=== PATIENT | female | born 1995 | race Caucasian/White ===

== ENCOUNTER 2020-03-26 17:19 | Emergency (ER) | payer MEDICAID ==
[2020-03-26] MEDS ORDERED: HYDROmorphone 1 MG/ML CARPUJECT IVP STA (17:44)
[2020-03-26] MEDS ORDERED: SODIUM CHLORIDE 0.9% 1,000 ML IV STA (17:44)
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
[2020-03-26 17:53] LABS: BASOPHILS # (AUTO) 0.1 10^3/uL (0.0-0.1); BASOPHILS % (AUTO) 0.7 %; EOSINOPHILS # (AUTO) 0.3 10^3/uL (0.0-0.7); EOSINOPHILS % (AUTO) 2.6 %; LYMPHOCYTES # (AUTO) 4.7 10^3/uL (1.5-3.5); LYMPHOCYTES % (AUTO) 35.6 %; MEAN CORPUSCULAR HEMOGLOBIN 31.1 pg (27.0-31.0); MEAN CORPUSCULAR VOLUME 91.6 fL (81.0-99.0); MEAN PLATELET VOLUME 9.6 fL (7.9-10.8); MONOCYTES # (AUTO) 1.1 10^3/uL (0.0-1.0); MONOCYTES % (AUTO) 8.6 %; NEUTROPHILS # (AUTO) 6.9 10^3/uL (1.5-6.6); NEUTROPHILS % (AUTO) 52.2 %; PLT - PLATELET COUNT 357 10^3/uL (130-450); RED CELL DISTRIBUTION WIDTH 13.2 % (12.0-15.0); WHITE BLOOD COUNT 13.1 x10^3/uL (4.8-10.8)
[2020-03-26 18:02] LABS: BILIRUBIN,URINE NEGATIVE (NEGATIVE); GLUCOSE, URINE (UA) NEGATIVE (NEGATIVE); KETONES,URINE (UA) NEGATIVE (NEGATIVE); LEUKOCYTE ESTERASE, URINE NEGATIVE (NEGATIVE); NITRITE,URINE POSITIVE (NEGATIVE); OCCULT BLOOD,URINE NEGATIVE (NEGATIVE); PROTEIN,URINE NEGATIVE (NEGATIVE); UROBILINOGEN,URINE 1 (NORMAL) E.U./dL (NORMAL)
[2020-03-26 18:08] LABS: CLARITY,URINE CLOUDY (CLEAR); HCG UR QUAL NEGATIVE
[2020-03-26 18:14] LABS: BACTERIA,URINE Many /HPF (None Seen); RBC,URINE 0-5 /HPF (0-5); SQUAMOUS EPITHELIAL CELL,UR FEW Squamous (<= Few)
[2020-03-26 18:27] LABS: ALBUMIN 4.6 g/dL (3.2-5.5); ALBUMIN/GLOBULIN RATIO 1.8 (1.0-2.2); BILIRUBIN,TOTAL 0.8 mg/dL (0.2-1.0); CREATININE 0.9 mg/dL (0.4-1.0); TOTAL PROTEIN 7.2 g/dL (6.7-8.2)
[2020-03-26] MEDS ORDERED: IOVERSOL 320 100 ML VIAL IVP ONE ×2 (18:35→18:58)
--- NOTE | 2020-03-26 19:11 | CT Report ---
Reason: acute severe belly pain; hx of previous splenectom Procedure Date: 03/26/2020 Accession Number: [id number] / [id number] Procedure: CT - Abdomen/Pelvis W CPT Code: Final Report FULL RESULT: PROCEDURE: Abdomen/Pelvis W INDICATIONS: acute severe belly pain; hx of previous splenectom CONTRAST: IV CONTRAST: Optiray 320 ml: 100 PO CONTRAST: *NO PO CONTRAST TECHNIQUE: After the administration of oral and intravenous contrast, 5 mm thick sections acquired from the diaphragms to the symphysis. 5 mm thick coronal and sagittal reformats were acquired. For radiation dose reduction, the following was used: automated exposure control, adjustment of mA and/or kV according to patient size. COMPARISON: None. FINDINGS: Image quality: Excellent. ABDOMEN: Lung bases: Lung bases are clear. Heart size is normal. Solid organs: Liver and spleen are normal in size and enhancement. Gallbladder is within normal limits Biliary system is non dilated. Pancreas enhances normally. No adrenal nodules. Kidneys demonstrate normal size and enhancement, without hydronephrosis. Peritoneum and bowel: Bowel loops demonstrate normal wall thickness and caliber. Moderate amount of stool throughout the colon. No free fluid or air. The appendix is normal. Nodes and vessels: No retroperitoneal or mesenteric adenopathy by size criteria. Aorta and inferior vena cava are normal in size. Miscellaneous: No ventral hernias. PELVIS: Genitourinary: Bladder wall thickness is normal. Miscellaneous: No inguinal hernias or adenopathy. Bones: No suspicious bony lesions. No vertebral body compression fractures. IMPRESSION: 1. No acute disease process. 2. No appendicitis. 3. No free fluid or free air. 4. No dilated loops of bowel. 5. Moderate fecal loading throughout the colon. Please correlate with clinical data. Reviewed by: Tuyet Hadley MD, PhD on 03/26/2020 7:09 PM PDT Approved by: Tuyet Hadley MD, PhD on 03/26/2020 7:09 PM PDT Station ID: [id number]
[2020-03-26] MEDS ORDERED: cefTRIAXone 1 GM VIAL IVP STA (19:30)
[2020-03-26 20:07] VITALS: BP 119/93
== END 2020-03-26 20:05 | disposition home or self-care (01) ==
LOC: ED 17:19
DX: N12 Tubulo-interstitial nephritis, not specified as acute or chronic (principal); K59.00 Constipation, unspecified; Z90.81 Acquired absence of spleen
CPT/HCPCS: 36415; 74177; 80053; 81001; 81025; 83690; 85025; 87086; 87181; 96361; 96374; 96375; 99284; J1170; Q9967; 81003

== ENCOUNTER 2021-01-09 14:05 | Outpatient (CLI) | payer MEDICAID, OTHER | END 2021-01-09 14:06 | disposition EMS.NT | LOC: EMS 14:05 | DX: T23.061A Burn of unspecified degree of back of right hand, initial encounter (principal); V43.53XA Car driver injured in collision with pick-up truck in traffic accident, initial encounter; W22.10XA Striking against or struck by unspecified automobile airbag, initial encounter; Y93.89 Activity, other specified; Y92.410 Unspecified street and highway as the place of occurrence of the external cause ==

== ENCOUNTER 2022-09-16 03:30 | Emergency (ER) | payer MEDICAID ==
[2022-09-16 03:40] VITALS: BP 128/92
[2022-09-16] MEDS ORDERED: AMOX/CLAV 875 MG/125 MG TABLET PO STA (03:52)
[2022-09-16] MEDS ORDERED: IBUPROFEN 800 MG TABLET PO STA (03:53)
--- NOTE | 2022-09-16 03:54 | ED Physician Documentation ---
PD HPI HEENT - Stated complaint Stated Complaint: L EAR PAIN W/ DISCH - Chief complaint Chief Complaint: Heent - History obtained from History obtained from: Patient - Additional information Additional information: Patient is a 27-year-old presenting for evaluation of left ear pain which is been present for 2 days. She used ibuprofen yesterday without any improvement. She reportsFeeling feverish yesterday but that has improved. She denies recent illness with cough, congestion. She denies chest pain or difficulty breathing.She denies abdominal discomfort.The pain in her ear is now causing her head to throb. Review of Systems Constitutional: reports: Fever Ears: reports: Ear pain Nose: denies: Congestion Cardiac: denies: Chest pain / pressure Respiratory: denies: Dyspnea, Cough GI: denies: Abdominal Pain, Vomiting Musculoskeletal: denies: Neck pain Neurologic: reports: Headache PD PAST MEDICAL HISTORY - Past Medical History Past Medical History: No Cardiovascular: None Respiratory: None Neuro: None Endocrine/Autoimmune: None GI: None REPRODUCTION PRODUCTION MANAGER: None : None HEENT: None Psych: None Musculoskeletal: None Derm: None - Past Surgical History Past Surgical History: Yes General: Splenectomy - Present Medications Home Medications: Ambulatory Orders Medication Instructions Recorded Confirmed Amox/Clav 875/125 [Augmentin] 1 each PO Q12H #20 tablet 09/16/22 Medroxyprogesterone Acetate 09/16/22 [Depo-Provera] - Allergies Allergies/Adverse Reactions: Allergies Allergy/AdvReac Type Severity Reaction Status Date / Time No Known Drug Allergies Allergy Verified 09/16/22 03:40 - Social History Does the pt smoke?: Yes Smoking Status: Current every day smoker Does the pt drink ETOH?: Yes Does the pt have substance abuse?: No - Immunizations Immunizations are current?: Yes - POLST Patient has POLST: No PD ED PE NORMAL - General General: Alert and oriented X 3, No acute distress, Well developed/nourished - HEENT HEENT: Atraumatic, Moist mucous membranes, Pharynx benign, Other (Left TM with erythema, dull and bulging, right TM is normal in appearance, no signs of foreign body & no drainage) - Neck Neck: Supple, no meningeal sign - Cardiac Cardiac: RRR, Strong equal pulses - Respiratory Respiratory: No respiratory distress, Clear bilaterally - Derm Derm: Warm and dry - Neuro Neuro: Normal speech Results - Vitals Vitals: Vital Signs - 24 hr 09/16/22 03:30 Temperature 37.6 C Heart Rate 112 H Respiratory 16 Rate Blood Pressure 128/92 H O2 Saturation 100 Oxygen O2 Source Room air PD MEDICAL DECISION MAKING - ED course ED course: Patient with exam findings consistent with acute otitis media. She is afebrile and otherwise well-appearing. Her initial vitals indicated tachycardia. She clinically is well-appearing, appears well-hydrated and is tolerating p.o. Patient started on antibiotics and counseled on concerning symptoms to return for. Departure - Departure Disposition: Home, Self Care Clinical Impression: Acute left otitis media Condition: Stable Instructions: ED Otitis Media Acute Adult Prescriptions: Amox/Clav 875/125 [Augmentin] 1 each PO Q12H #20 tablet Comments: I have started you on an antibiotic called Augmentin For an ear infection. I sent this prescription to [facility] in [place] that is the only area pharmacy open on . Please make sure to complete the course of the antibiotics. You can use acetaminophen or ibuprofen as needed for pain. Discharge Date/Time: 09/16/22 03:58
== END 2022-09-16 03:58 | disposition home or self-care (01) ==
LOC: ED 03:30
DX: H66.92 Otitis media, unspecified, left ear (principal); F17.200 Nicotine dependence, unspecified, uncomplicated
CPT/HCPCS: 99282; A9270

== ENCOUNTER 2023-06-23 11:17 | Outpatient (CLI) | payer MEDICAID | END 2023-06-23 11:18 | disposition EMS.NT | LOC: EMS 11:17 | DX: Z04.1 Encounter for examination and observation following transport accident (principal) ==